=== PATIENT | female | born 1985 | race Caucasian/White ===

== ENCOUNTER → 2017-02-01 | Outpatient (CLI) | payer BC ==
[~2017-02-01] MED LIST: ZOFRAN 4MG T4 MG/TAB PO; ampicillin
== END ==
LOC: BHSO 11:15
DX: F31.73 Bipolar disorder, in partial remission, most recent episode manic (principal)

== ENCOUNTER → 2017-05-03 | Outpatient (CLI) | payer BC | LOC: BHSO 11:53 | DX: F31.74 Bipolar disorder, in full remission, most recent episode manic (principal) ==

== ENCOUNTER → 2017-07-03 | Outpatient (CLI) | payer BC | LOC: BHSO 11:13 | DX: F31.73 Bipolar disorder, in partial remission, most recent episode manic (principal) ==

== ENCOUNTER → 2017-10-09 | Outpatient (CLI) | payer BC, OTHER | LOC: BHSO 11:16 | DX: F31.73 Bipolar disorder, in partial remission, most recent episode manic (principal) ==

== ENCOUNTER → 2018-04-10 | Outpatient (CLI) | payer BC, OTHER | LOC: BHSO 11:14 | DX: F31.81 Bipolar II disorder (principal) | CPT/HCPCS: G0463 ==

== ENCOUNTER → 2018-09-17 | Outpatient (CLI) | payer BC, OTHER | LOC: BHSO 11:14 | DX: F31.81 Bipolar II disorder (principal) | CPT/HCPCS: G0463 ==

== ENCOUNTER → 2018-12-17 | Outpatient (CLI) | payer BC, OTHER | LOC: BHSO 11:15 | DX: F90.0 Attention-deficit hyperactivity disorder, predominantly inattentive type (principal) | CPT/HCPCS: G0463 ==

== ENCOUNTER → 2019-06-05 | Outpatient (CLI) | payer BC, OTHER | LOC: BHSO 11:16 | DX: F31.81 Bipolar II disorder (principal) | CPT/HCPCS: G0463 ==

== ENCOUNTER → 2019-12-10 | Outpatient (CLI) | payer BC, OTHER | LOC: BHSO 11:10 | DX: F31.81 Bipolar II disorder (principal) | CPT/HCPCS: G0463 ==

== ENCOUNTER → 2020-06-22 | Outpatient (CLI) | payer BC, OTHER | LOC: BHSO 11:15 | DX: F41.1 Generalized anxiety disorder (principal) | CPT/HCPCS: G0463 ==

== ENCOUNTER → 2020-09-14 | Outpatient (CLI) | payer BC, OTHER | LOC: BHSO 10:54 | DX: F31.81 Bipolar II disorder (principal) | CPT/HCPCS: G0463 ==